=== PATIENT | male | born 1995 | race Caucasian/White ===

== ENCOUNTER 2020-08-03 04:25 | Emergency (ER) | payer OTHER ==
[~2020-08-03] VITALS: Ht 165.1 cm; Wt 59.9 kg
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
--- NOTE | 2020-08-03 04:35 | NUR ---
PT WAS TAKEN TO CT.
--- NOTE | 2020-08-03 05:00 | NUR ---
PT CAME BACK FROM CT.
--- NOTE | 2020-08-03 05:28 | NUR ---
PT IS MEDICALLY STABLE FOR D/C. Patient discharged to [facility] in custody in stable condition. Written and verbal after care instructions given. Patient verbalizes understanding of instruction.
[2020-08-03 05:30] VITALS: BP 119/79
== END 2020-08-03 05:31 ==
LOC: ER 04:25
DX: S00.81XA Abrasion of other part of head, initial encounter (principal); V43.92XA Unspecified car occupant injured in collision with other type car in traffic accident, initial encounter; Y93.89 Activity, other specified; Y92.413 State road as the place of occurrence of the external cause; Y99.8 Other external cause status
CPT/HCPCS: 70450-TC; 70486-TC